=== PATIENT | male | born 1965 | race Two or more races ===

== ENCOUNTER 2023-11-21 06:15 | Inpatient (IN) | payer MEDICARE, OTHER ==
[~2023-11-21] VITALS: Ht 177.8 cm; Wt 87.7 kg
[2023-11-21] MEDS: SODIUM CHLORIDE 0.9% 1,000 ML IVB ONE (07:36)
[2023-11-21 08:47] LABS: Basophils # (auto) 0 10 ^3/uL (0-0.2); Basophils % (auto) 0.3 % (0.0-2.0); Eosinophils # (auto) 0 10 ^3/uL (0-0.8); Eosinophils % (auto) 0.2 % (0.0-7.0); Hematocrit 37.5 % (41.0-53.0); Hemoglobin 12.8 g/dL (13.5-17.5); Lymphocytes % (auto) 11.6 % (10.0-50.0); Mean Corpuscular Hemoglobin 32.1 pg (28.0-32.0); Mean Corpuscular Hgb Conc. 34.1 g/dL (32.0-36.0); Mean Corpuscular Volume 94.3 fL (80.0-100.0); Monocytes # (auto) 0.6 10 ^3/uL (0-1.3); Neutrophils # (auto) 6.7 10 ^3/uL (1.6-8.6); Neutrophils % (auto) 80.9 % (37.0-80.0); Platelet Count (auto) 224 10^3/uL (140-450); Red Blood Cells 3.98 10^6/uL (4.5-5.90); Red Cell Distribution Width 13.7 % (11.8-14.3); White Blood Cell 8.2 10^3/uL (4.4-10.8)
[2023-11-21 09:27] LABS: Alanine Aminotransferase 68 U/L (7-40); Albumin 4.4 g/dL (3.2-4.8); Alkaline Phosphatase 58 U/L (46-116); Anion Gap 9 (5-15); Aspartate Aminotransferase 119 U/L (13-40); BUN/Creatinine Ratio 29.9 (10.0-20.0); Blood Urea Nitrogen 29 mg/dL (9-23); Calcium 9.7 mg/dL (8.7-10.4); Carbon Dioxide 26 mmol/L (20-31); Chloride 109 mmol/L (98-107); Glucose 136 mg/dL (74-106); Magnesium 2.3 mg/dL (1.6-2.6); Potassium 3.8 mmol/L (3.5-5.1); Sodium 144 mmol/L (136-145)
[2023-11-21 09:28] LABS: Bilirubin, Total 0.4 mg/dL (0.2-1.0)
[2023-11-21 12:12] LABS: Urine Bacteria None Seen /hpf (None Seen)
[2023-11-21 12:47] LABS: Urine Blood Negative /uL (Negative); Urine Clarity Clear (Clear); Urine Color Yellow (Yellow); Urine Mucus FEW (None Seen); Urine Protein, UAD TRACE (Negative); Urine Specific Gravity 1.031 (1.001-1.035); Urine Urobilinogen Normal (Negative); Urine WBC 1 /hpf (0 - 3); Urine pH 5.5 (5.0-9.0)
[2023-11-21 12:58] LABS: Amphetamine Screen, Urine Neg (NEGATIVE); Barbiturate Scree,Urine Neg (NEGATIVE); Benzodiazephine Screen, Urine Neg (NEGATIVE); Cocaine Screen, Urine Neg (NEGATIVE)
[2023-11-21 12:59] LABS: Cannabinoid Screen, Urine Neg (NEGATIVE); Opiate Scree,Urine Neg (NEGATIVE); Phencyclidine Screen, Urine Neg (NEGATIVE)
[2023-11-21] MEDS: SODIUM CHLORIDE 0.9% 1,000 ML IV ONE (23:27)
[2023-11-22] MEDS: SODIUM CHLORIDE 0.9% 1,000 ML IV ONE (03:16)
[2023-11-22] MEDS ORDERED: ALBUTEROL SULF 2.5 MG/0.5ML(0.5%) NEB SOLN NEB PRN (06:30)
[2023-11-22] MEDS ORDERED: IPRATROPIUM BROM 0.5 MG/2.5ML INH SOL NEB PRN (06:30)
[2023-11-22] MEDS: THIAMINE 100mg/ml INJ (200mg/2ml VIAL) IM ONE (06:43)
[2023-11-22] MEDS: LORazepam 2MG/ML-1ML VIAL IV ONE (06:46)
[2023-11-22] MEDS: FOLIC ACID 1 MG in D5W 5% 50 ML INJ ONE (07:00)
[2023-11-22 07:30] VITALS: PULSE 48; RESP 17; O2SAT 97
[2023-11-22 08:12] LABS: COVID19 ANTIGEN SOFIA FIA NEGATIVE (NEGATIVE)
[2023-11-22 08:14] LABS: Rapid Influenza A Negative (Negative); Rapid Influenza B Negative (Negative)
[2023-11-22 15:54] VITALS: PULSE 45; RESP 20; O2SAT 95
[2023-11-22 16:45] VITALS: BP 113/66; PULSE 54; RESP 17; TEMP 97.6; O2SAT 96
[2023-11-22] MEDS: SODIUM CHLORIDE 0.9% 1,000 ML IV SCH (18:15)
[2023-11-22] MEDS: FOLIC ACID 1 MG, MAGNESIUM SULF SDV 50% 8 MEQ, MULTIPLE VITAMIN 10 ML, THIAMINE INJ 100... INJ SCH (18:57)
[2023-11-22 20:00] VITALS: PULSE 60; RESP 20; O2SAT 95
[2023-11-22 21:00] VITALS: BP 113/60; PULSE 60; RESP 20; TEMP 97.8; O2SAT 95
[2023-11-22] MEDS: risperiDONE 1 MG TAB PO SCH (21:09)
[2023-11-22] MEDS: traZODone HCL 50 MG TAB PO SCH (21:09)
[2023-11-23] VITALS (8 sets, daily range): BP systolic 113–127; BP diastolic 60–78; PULSE 54–80; RESP 16–20; TEMP 97.3–98.3; O2SAT 96–99
[2023-11-23 05:30] LABS: Basophils # (auto) 0 10 ^3/uL (0-0.2); Basophils % (auto) 0.8 % (0.0-2.0); Eosinophils # (auto) 0.1 10 ^3/uL (0-0.8); Eosinophils % (auto) 1.8 % (0.0-7.0); Hematocrit 32.7 % (41.0-53.0); Hemoglobin 11.4 g/dL (13.5-17.5); Lymphocytes # (auto) 1.6 10 ^3/uL (0.4-5.4); Mean Corpuscular Hemoglobin 32.6 pg (28.0-32.0); Mean Corpuscular Hgb Conc. 34.9 g/dL (32.0-36.0); Mean Corpuscular Volume 93.5 fL (80.0-100.0); Monocytes # (auto) 0.5 10 ^3/uL (0-1.3); Monocytes % (auto) 8.6 % (0.0-12.0); Neutrophils # (auto) 3.6 10 ^3/uL (1.6-8.6); Neutrophils % (auto) 61.8 % (37.0-80.0); Nucleated Red Blood Cells % 0.1 %; Platelet Count (auto) 187 10^3/uL (140-450); Red Cell Distribution Width 13.8 % (11.8-14.3); White Blood Cell 5.9 10^3/uL (4.4-10.8)
[2023-11-23 05:31] LABS: Chloride 113 mmol/L (98-107); Potassium 3.7 mmol/L (3.5-5.1); Sodium 143 mmol/L (136-145)
[2023-11-23 05:32] LABS: Anion Gap 5 (5-15); Carbon Dioxide 25 mmol/L (20-31)
[2023-11-23 05:33] LABS: Calcium 8.9 mg/dL (8.7-10.4)
[2023-11-23 05:38] LABS: BUN/Creatinine Ratio 15.7 (10.0-20.0); Blood Urea Nitrogen 16 mg/dL (9-23); Glucose 99 mg/dL (74-106)
[2023-11-23] MEDS: MAGNESIUM OXIDE 400 MG TAB PO ONE (14:09)
[2023-11-23] MEDS: FOLIC ACID 1 MG TAB PO ONE (14:09)
[2023-11-23] MEDS: THIAMINE HCL 100 MG TAB PO ONE (14:09)
[2023-11-23] MEDS: MULTIPLE VITAMIN TAB PO ONE (14:10)
[2023-11-24] VITALS (8 sets, daily range): BP systolic 95–133; BP diastolic 54–95; PULSE 50–104; RESP 16–19; TEMP 97.8–98.4; O2SAT 91–100
[2023-11-24] MEDS: FOLIC ACID 1 MG TAB PO SCH (09:30)
[2023-11-24] MEDS: THIAMINE HCL 100 MG TAB PO SCH (09:30)
[2023-11-24] MEDS: MULTIPLE VITAMIN TAB PO SCH (09:30)
[2023-11-24] MEDS: MAGNESIUM OXIDE 400 MG TAB PO SCH (09:35)
[2023-11-25] VITALS (7 sets, daily range): BP systolic 123–145; BP diastolic 62–83; PULSE 53–62; RESP 16–19; TEMP 98–98.3; O2SAT 95–100
[2023-11-26 05:00] VITALS: BP 109/62; PULSE 52; RESP 18; TEMP 98.1; O2SAT 97
[2023-11-26 09:00] VITALS: BP 117/71; PULSE 56; RESP 16; TEMP 98.3; O2SAT 96
[2023-11-26 13:00] VITALS: BP 111/61; PULSE 65; RESP 17; TEMP 98.3; O2SAT 99
[2023-11-26 16:46] VITALS: BP 114/74; PULSE 62; RESP 18; TEMP 97.7; O2SAT 97
[2023-11-26 20:00] VITALS: PULSE 79; RESP 18; O2SAT 98
[2023-11-26 21:00] VITALS: BP 103/64; PULSE 79; RESP 18; TEMP 98; O2SAT 98
[2023-11-27 01:00] VITALS: BP 97/58; PULSE 61; RESP 18; TEMP 97.5; O2SAT 95
[2023-11-27 04:48] VITALS: BP 109/65; PULSE 52; RESP 19; TEMP 98; O2SAT 95
[2023-11-27 09:00] VITALS: BP 122/63; PULSE 58; RESP 17; TEMP 97.6; O2SAT 96
[2023-11-27 13:00] VITALS: BP 121/73; PULSE 69; RESP 18; TEMP 98.8; O2SAT 95
[2023-11-27 17:00] VITALS: BP 125/80; PULSE 83; RESP 19; TEMP 98.7; O2SAT 96
[2023-11-27 21:00] VITALS: BP 111/70; PULSE 84; RESP 19; TEMP 98.3; O2SAT 95
[2023-11-28 01:00] VITALS: BP 115/62; PULSE 60; RESP 18; TEMP 97.9; O2SAT 95
[2023-11-28 05:21] VITALS: BP 100/57; PULSE 55; RESP 19; TEMP 98; O2SAT 94
[2023-11-28 07:30] LABS: Basophils # (auto) 0 10 ^3/uL (0-0.2); Basophils % (auto) 0.7 % (0.0-2.0); Eosinophils # (auto) 0.1 10 ^3/uL (0-0.8); Eosinophils % (auto) 1.5 % (0.0-7.0); Hematocrit 43.2 % (41.0-53.0); Hemoglobin 14.9 g/dL (13.5-17.5); Lymphocytes # (auto) 1.9 10 ^3/uL (0.4-5.4); Lymphocytes % (auto) 25.9 % (10.0-50.0); Mean Corpuscular Hemoglobin 32.9 pg (28.0-32.0); Mean Corpuscular Hgb Conc. 34.4 g/dL (32.0-36.0); Mean Corpuscular Volume 95.7 fL (80.0-100.0); Monocytes # (auto) 0.6 10 ^3/uL (0-1.3); Monocytes % (auto) 8.4 % (0.0-12.0); Neutrophils # (auto) 4.7 10 ^3/uL (1.6-8.6); Neutrophils % (auto) 63.5 % (37.0-80.0); Nucleated Red Blood Cells % 0.2 %; Platelet Count (auto) 256 10^3/uL (140-450); Red Blood Cells 4.51 10^6/uL (4.5-5.90); Red Cell Distribution Width 13.8 % (11.8-14.3); White Blood Cell 7.5 10^3/uL (4.4-10.8)
[2023-11-28 07:34] LABS: Chloride 107 mmol/L (98-107); Potassium 4.3 mmol/L (3.5-5.1); Sodium 139 mmol/L (136-145)
[2023-11-28 07:35] LABS: Anion Gap 7 (5-15); Calcium 10.1 mg/dL (8.7-10.4); Carbon Dioxide 25 mmol/L (20-31)
[2023-11-28 07:40] LABS: BUN/Creatinine Ratio 15.5 (10.0-20.0); Blood Urea Nitrogen 16 mg/dL (9-23); Glucose 91 mg/dL (74-106)
[2023-11-28 13:11] VITALS: BP 121/64; PULSE 56; RESP 22; TEMP 97.9; O2SAT 98
[2023-11-28 16:32] VITALS: BP 117/72; PULSE 67; RESP 18; TEMP 98.1; O2SAT 98
[2023-11-28] MEDS: ACETAMINOPHEN 325 MG TAB PO PRN (16:34)
[2023-11-28 21:00] VITALS: BP 126/68; PULSE 70; RESP 18; TEMP 97.7; O2SAT 93
[2023-11-29] VITALS (7 sets, daily range): BP systolic 107–125; BP diastolic 46–79; PULSE 54–79; RESP 17–20; TEMP 97.7–98.1; O2SAT 95–99
[2023-11-29 07:16] LABS: Basophils # (auto) 0.1 10 ^3/uL (0-0.2); Eosinophils # (auto) 0.1 10 ^3/uL (0-0.8); Eosinophils % (auto) 1.7 % (0.0-7.0); Hematocrit 38.6 % (41.0-53.0); Hemoglobin 13.3 g/dL (13.5-17.5); Lymphocytes # (auto) 1.6 10 ^3/uL (0.4-5.4); Lymphocytes % (auto) 24.2 % (10.0-50.0); Mean Corpuscular Hemoglobin 32.1 pg (28.0-32.0); Mean Corpuscular Hgb Conc. 34.6 g/dL (32.0-36.0); Mean Corpuscular Volume 92.9 fL (80.0-100.0); Monocytes # (auto) 0.6 10 ^3/uL (0-1.3); Monocytes % (auto) 8.8 % (0.0-12.0); Neutrophils # (auto) 4.2 10 ^3/uL (1.6-8.6); Neutrophils % (auto) 64.3 % (37.0-80.0); Nucleated Red Blood Cells % 0.1 %; Platelet Count (auto) 249 10^3/uL (140-450); Red Blood Cells 4.15 10^6/uL (4.5-5.90); Red Cell Distribution Width 13.7 % (11.8-14.3); White Blood Cell 6.6 10^3/uL (4.4-10.8)
[2023-11-29 07:28] LABS: Anion Gap 6 (5-15); Calcium 9.8 mg/dL (8.7-10.4); Carbon Dioxide 25 mmol/L (20-31); Chloride 107 mmol/L (98-107); Potassium 4.4 mmol/L (3.5-5.1); Sodium 138 mmol/L (136-145)
[2023-11-29 07:34] LABS: BUN/Creatinine Ratio 16.8 (10.0-20.0); Blood Urea Nitrogen 17 mg/dL (9-23); Glucose 95 mg/dL (74-106)
[2023-11-29] MEDS: LORazepam 2MG/ML-1ML VIAL IV PRN (08:33)
[2023-11-30 05:00] VITALS: BP 124/67; PULSE 56; RESP 17; TEMP 98.1; O2SAT 96
[2023-11-30 06:37] LABS: Chloride 107 mmol/L (98-107); Potassium 4.1 mmol/L (3.5-5.1); Sodium 140 mmol/L (136-145)
[2023-11-30 06:38] LABS: Anion Gap 8 (5-15); Calcium 9.9 mg/dL (8.7-10.4); Carbon Dioxide 25 mmol/L (20-31)
[2023-11-30 06:43] LABS: Blood Urea Nitrogen 16 mg/dL (9-23); Glucose 91 mg/dL (74-106)
[2023-11-30 07:08] LABS: Basophils # (auto) 0 10 ^3/uL (0-0.2); Basophils % (auto) 0.7 % (0.0-2.0); Eosinophils # (auto) 0.1 10 ^3/uL (0-0.8); Eosinophils % (auto) 1.6 % (0.0-7.0); Hemoglobin 13.4 g/dL (13.5-17.5); Lymphocytes # (auto) 1.6 10 ^3/uL (0.4-5.4); Lymphocytes % (auto) 22.7 % (10.0-50.0); Mean Corpuscular Hemoglobin 32.7 pg (28.0-32.0); Mean Corpuscular Hgb Conc. 35.3 g/dL (32.0-36.0); Mean Corpuscular Volume 92.6 fL (80.0-100.0); Monocytes # (auto) 0.6 10 ^3/uL (0-1.3); Monocytes % (auto) 8.2 % (0.0-12.0); Neutrophils # (auto) 4.6 10 ^3/uL (1.6-8.6); Neutrophils % (auto) 66.8 % (37.0-80.0); Platelet Count (auto) 247 10^3/uL (140-450); Red Cell Distribution Width 13.3 % (11.8-14.3); White Blood Cell 6.9 10^3/uL (4.4-10.8)
[2023-11-30 08:00] VITALS: RESP 20
[2023-11-30 09:00] VITALS: BP 114/68; PULSE 80; RESP 18; TEMP 97.8; O2SAT 98
[2023-11-30 13:00] VITALS: BP 115/59; PULSE 70; RESP 20; TEMP 97.9; O2SAT 96
[2023-11-30 17:00] VITALS: BP 122/62; PULSE 72; RESP 16; TEMP 97.8; O2SAT 97
[2023-11-30 21:00] VITALS: BP 111/69; PULSE 71; RESP 20; TEMP 98.7; O2SAT 97
[2023-12-01] VITALS (8 sets, daily range): BP systolic 110–128; BP diastolic 65–80; PULSE 52–81; RESP 18–20; TEMP 97.9–98.7; O2SAT 96–100
[2023-12-02] VITALS (8 sets, daily range): BP systolic 111–120; BP diastolic 63–73; PULSE 63–71; RESP 16–19; TEMP 97.4–98.1; O2SAT 97–100
[2023-12-02 06:03] LABS: Chloride 111 mmol/L (98-107); Potassium 4.3 mmol/L (3.5-5.1); Sodium 142 mmol/L (136-145)
[2023-12-02 06:04] LABS: Anion Gap 7 (5-15); Carbon Dioxide 24 mmol/L (20-31)
[2023-12-02 06:05] LABS: Calcium 9.7 mg/dL (8.7-10.4)
[2023-12-02 06:09] LABS: BUN/Creatinine Ratio 16.7 (10.0-20.0); Blood Urea Nitrogen 16 mg/dL (9-23); Glucose 93 mg/dL (74-106)
[2023-12-03] VITALS (8 sets, daily range): BP systolic 109–131; BP diastolic 70–81; PULSE 60–65; RESP 16–19; TEMP 97.7–98.3; O2SAT 97–99
[2023-12-04 05:00] VITALS: BP 109/75; PULSE 79; RESP 18; TEMP 98.2; O2SAT 97
== END 2023-12-04 12:27 | DRG 640 ==
LOC: ER 06:15 → EDBD 06:15 → EAST 11-22 05:26 → OVERFLOW 11-22 05:26 → EAST 11-22 15:55 → WEST WING 11-28 09:32
PROVIDERS: ADMIT Internal Medicine; ATTEND Internal Medicine
DX: E86.0 Dehydration (principal); G93.41 Metabolic encephalopathy; F31.32 Bipolar disorder, current episode depressed, moderate; Z59.00 Homelessness unspecified; K76.0 Fatty (change of) liver, not elsewhere classified; F10.90 Alcohol use, unspecified, uncomplicated; F20.9 Schizophrenia, unspecified; J44.9 Chronic obstructive pulmonary disease, unspecified; Z87.891 Personal history of nicotine dependence; Z79.899 Other long term (current) drug therapy; Y90.9 Presence of alcohol in blood, level not specified
CPT/HCPCS: 36415; 70450; 71046; 76705; 80048; 80053; 80307; 80320; 81001; 82140; 82607; 82746; 83605; 83735; 84443; 85025; 87426; 87804; 93005; 96360; 96361; G0378; J7060